=== PATIENT | male | born 1995 | race Two or more races ===

== ENCOUNTER 2022-12-14 23:22 | Inpatient (IN) | payer OTHER, SELFPAY ==
[2022-12-14 23:50] VITALS: BP 136/83; PULSE 63; RESP 16; TEMP 36.4; O2SAT 97
[2022-12-15 00:03] VITALS: BMI 22.3
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
[2022-12-15 09:00] VITALS: BP 121/80; PULSE 78; RESP 18; TEMP 36.4; O2SAT 100
[2022-12-15] MEDS: Sertraline HCL 50 MG TABLET PO (15:37)
--- NOTE | 2022-12-15 16:46 | HO.PM.IMCN ---
History of Present Illness Data of Consult Service Date: 12/15/22 Requesting physician: Santosh Harris Primary Care Provider: Unknown Physician HPI Reason for consult: medical H&P 27-year-old male with history of mild intermittent asthma admitted to Psychiatry with consult placed to hospitalist service for medical H and P. Patient has no complaints at this time and is feeling well overall. He does tell me that he smokes marijuana on a regular basis which he does not always get from a dispensary. He also uses cocaine occasionally but denies any other drug use. Reports occasional alcohol use. He does tell me he also smokes 2-3 packs of cigarettes on a daily basis and does desire to quit. Review of Systems Review of Systems: General: No fevers, malaise, unintentional weight loss HEENT: No blurred vision, diplopia. No sore throat, nasal congestion, rhinorrhea, sinus pain, ear pain Cardiovascular: No chest pain, palpitations, or leg edema Respiratory: No shortness of breath, wheezing, cough GI: No abdominal pain, nausea, vomiting, diarrhea, constipation, melena, hematochezia : No dysuria, hematuria, increased urinary frequency, decreased urinary output MSK: No myalgia, back pain Neuro: No headaches, weakness, paresthesias Skin: No rashes or lesions PMF Medical History (Updated 12/15/22 @ 22:41 by Santosh Harris) Mild intermittent asthma Social History Household Members: None Housing: Homeless Do you presently have visiting nurse or other home services: No Patient Tobacco Use Status: Current everyday Tobacco user Tobacco use type: Cigarette Cigarette Packs Per Day: 1.5 Cigarettes Per Day: 30.0 Smoked in Last 30 Days: Yes e-Cigarette/Vaping Use: Never Used Patient Interested in Nicotine Replacement: Yes Patient Given Instructions on How to Stop Smoking: Yes Date Education Initiated: 12/15/22 Second Hand Smoke Exposure: Yes Use of substances other than those prescribed or required for medical reasons: Yes Substance Use Type: Crack/Cocaine and Marijuana Substance Use Frequency: Chronic Longstanding Last Used Substance: Days (ago) Currently Displaying Signs/Symptoms of Drug Intoxication Withdrawal: No Any prior treatment program specific to substance use: No Have you been hit, kicked, punched, or otherwise hurt by someone within the past year? If so, by whom?: No Do you feel safe in your current relationship?: No Current Relationship Is there a partner from a previous relationship who is making you feel unsafe now?: No Are you made to feel afraid or neglected: No Advance Directives: No Advance Directives Information Provided: No Do you have thoughts of harming others: None Do you have a plan to hurt others: No Plan Recently lost weight without trying: No How much weight loss: Not applicable Eating poorly because of decreased appetite: No Nutrition screen score: 0 Nutrition Risks: No Nutritional Risk Poor oral hygiene: No service: No Sexual orientation: Straight/Heterosexual Meds Allergies Allergy/AdvReac Type Severity Reaction Status Date / Time banana AdvReac Intermediate Difficulty Verified 12/15/22 07:30 Swallowing apple AdvReac Difficulty Verified 12/15/22 07:30 Swallowing Active Medications: Current Medications Acetaminophen (Acetaminophen 325 Mg Tablet) 650 mg PO Q6H PRN PRN Reason: Headache/Pain Mild Scale (1-3) Al Hydroxide/Mg Hydroxide (Magnesium Hydrox/Alum Hydrox 30 Ml Oral.Susp) 30 ml PO Q6H PRN PRN Reason: Heartburn/Nausea Clonidine HCl (Clonidine Hcl 0.1 Mg Tablet) 0.1 mg PO Q4H PRN; Protocol PRN Reason: severe anxiety/agitation Magnesium Hydroxide (Milk Of Magnesia 30 Ml Oral.Susp) 30 ml PO DAILY PRN PRN Reason: Constipation Nicotine Polacrilex (Nicotine Polacrilex 2 Mg Gum) 4 mg BUCCAL Q2H PRN PRN Reason: Nicotine Cravings Sertraline HCl (Sertraline Hcl 50 Mg Tablet) 50 mg PO DAILY [facility] Last Admin: 12/15/22 15:37 Dose: 50 mg Trazodone HCl (Trazodone Hcl 50 Mg Tablet) 50 mg PO BEDTIME MRX1 PRN PRN Reason: Insomnia Physical Exam Vital Signs and Narrative: Vital Signs: Last Vital Signs Temp 97.6 F 12/15/22 09:00 Pulse 78 12/15/22 09:00 Resp 18 12/15/22 09:00 BP 121/80 12/15/22 09:00 Pulse Ox 100 12/15/22 09:00 O2 Del Method Room Air 12/15/22 09:00 BMI result Body Mass Index 22.3 Constitutional - Awake and Alert, No apparent distress Eyes - PERRLA, EOMI Cardiovascular - S1S2, RRR, No edema Respiratory - Normal lung expansion, Normal respiratory effort, No respiratory distress, CTA bilaterally Gastrointestinal - NT / ND; +BS; No rebound or guarding Extremities - no calf tenderness bilaterally, no swelling Musculoskeletal - Normal inspection, normal ROM Skin - Warm/Dry Neurological - Alert & oriented x3, CN II-XII in tact, 5/5 strength BUE and BLE Psychological - Appropriate affect Assessment and Plan (1) Routine medical exam: Status: Acute Plan 27-year-old male with history of mild intermittent asthma admitted to Psychiatry with consult placed to hospitalist service for medical H and P. #Mood disorder -plan per psychiatry #Substance use -plan per psychiatry #Mild intermittent asthma -no exacerbation -albuterol prn #Cigarette smoking -Currently smoking 2-3 packs per day -Desires to quit cold turkey. Nicorette prn -Cessation counseling provided Thank you for allowing me to participate in this consult. Signing off at this time. Please do not hesitate to call for further questions. Time Spent With Patient Time: Total time managing care of this patient today ____ minutes.
[2022-12-15 20:56] VITALS: BP 133/83; PULSE 75; RESP 16; TEMP 36.6; O2SAT 98
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
[2022-12-16 07:00] VITALS: BMI 22.7
[2022-12-16 08:32] VITALS: BP 119/80; PULSE 85; RESP 18; TEMP 36.6; O2SAT 100
[2022-12-16] MEDS: Sertraline HCL 50 MG TABLET PO (08:34)
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
[2022-12-16 22:28] VITALS: BP 131/91; PULSE 60; RESP 16; O2SAT 99
[2022-12-16] MEDS: cloNIDine HCL 0.1 MG TABLET PO (22:42)
[2022-12-17 08:30] VITALS: BP 129/75; PULSE 100; RESP 18; TEMP 36.6; O2SAT 98
[2022-12-17] MEDS: Sertraline HCL 50 MG TABLET PO (08:37)
--- NOTE | 2022-12-17 09:02 | PC.NURSE ---
Leonidas is alert, fully oriented, pleasant and cooperative with discharge process. He denies ideation, plan or intent to harm self or others. He denies current physical complaint. He verbalizes understanding of discharge plan including medications and appointments.
== END 2022-12-17 11:20 | disposition home or self-care (01) | DRG 756 ==
PROVIDERS: Admitting Provider Psychiatry & Neurology Psychiatry; Visit Provider Psychiatry & Neurology Psychiatry
DX: F41.9 Anxiety disorder, unspecified (principal); F17.210 Nicotine dependence, cigarettes, uncomplicated; F32.A Depression, unspecified; J45.20 Mild intermittent asthma, uncomplicated; F43.10 Post-traumatic stress disorder, unspecified; Z71.6 Tobacco abuse counseling; Z79.899 Other long term (current) drug therapy

== ENCOUNTER 2023-03-10 18:55 | Inpatient (IN) | payer OTHER, SELFPAY ==
[2023-03-10 19:46] VITALS: BP 117/77; PULSE 87; RESP 16; TEMP 36.6; O2SAT 97
[2023-03-10 20:07] VITALS: BMI 22.1
--- NOTE | 2023-03-10 20:32 | PC.ADMIT ---
Addendum entered by Elina Lorenzo RN 03/10/23 22:09: EKG was completed. QT/QTC 408/417 Acute Bronchitis dx at [facility] Original Note: PT is a 28 year old Tajik speaking male that arrived on this unit at 19:05 via ambulance from [facility] and was placed on 5 minute safety checks per protocol. Legal Status: conditional voluntary. PT self presented to [facility] ED seeking assistance for increased depression and suicidal ideation with a plan to jump off a bridge. PT has a history of substance use disorder and is currently homeless. Tox screen + for THC and cocaine as well as a BAL of 56. PT admits to using cocaine as often as he can get it, marijuana daily, and alcohol daily with an estimate of 10-12 nips per day for an estimated time of one month with last use prior to admission. PT is dressed in hospital attire, appears well groomed and is engaged throughout admission process. PT is currently not exhibiting any signs of withdrawal. CIWAs ordered and withdrawal protocol initiated by provider (LINDA). VS stable at this time. PT was psychiatrically admitted to this unit in November 2022 but did not continue medications for long after discharge due to they make me feel like a zombie . PT denies current SI/HI AH/VH and is currently resting in bed and appears to be in no acute distress. Admission orders obtained, safety tool and treatment plan completed. Promote safety and initiate treatment plan.
[2023-03-10] MEDS: LORazepam 0.5 MG TABLET PO (21:16)
[2023-03-11 07:55] LABS: Estimated Average Glucose 94 mg/dL; Hemoglobin A1c % 4.9 %
[2023-03-11 08:10] LABS: Cholesterol 181 mg/dL; HDL Cholesterol 52 mg/dL; LDL Cholesterol Calculated 104 mg/dl; Magnesium 2.2 mg/dL (1.6-2.6); Triglycerides 125 mg/dL
[2023-03-11 08:27] LABS: Thyroid Stimulating Hormone 0.52 uIU/mL (0.32-4.0)
[2023-03-11 08:38] LABS: Folate 10.7 ng/mL (> or = 4.0); Vitamin B12 408 pg/mL (200-900)
[2023-03-11] MEDS: LORazepam 0.5 MG TABLET PO ×2 (08:40→20:21)
[2023-03-11] MEDS: Doxycycline Monohydrate 100 MG CAPSULE PO ×2 (08:40→20:21)
[2023-03-11] MEDS: predniSONE 20 MG TABLET 40 MG PO (08:40)
[2023-03-11] MEDS: Thiamine HCL 100 MG TABLET PO (08:41)
[2023-03-11] MEDS: Folic Acid 1 MG TABLET PO (08:41)
[2023-03-11] MEDS: Multivitamin TABLET 1 TAB PO (08:41)
[2023-03-11 09:01] VITALS: BP 128/73; PULSE 86; RESP 18; TEMP 36.7; O2SAT 98
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
--- NOTE | 2023-03-11 13:35 | MHC.CLN ---
NUTRITION CONSULT FOR REPORTED RECENT 10# WEIGHT LOSS. WEIGHT HX X 3 MONTHS DOES NOT CONFIRM WEIGHT LOSS. REPORTS THAT EATING VERY WELL HERE. WOULD LIKE ENSURE TID. SUPPLEMENT PROVIDES [address] AVAILABLE BY CONSULT.
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
[2023-03-11 20:10] VITALS: BP 130/84; PULSE 66; RESP 18; TEMP 36.6; O2SAT 97
[2023-03-11] MEDS: Escitalopram Oxalate 10 MG TABLET PO (20:21)
[2023-03-12 08:44] VITALS: BP 124/79; PULSE 61; RESP 18; TEMP 36.6; O2SAT 98
[2023-03-12] MEDS: Multivitamin TABLET 1 TAB PO (08:48)
[2023-03-12] MEDS: Doxycycline Monohydrate 100 MG CAPSULE PO ×2 (08:48→22:03)
[2023-03-12] MEDS: Folic Acid 1 MG TABLET PO (08:48)
[2023-03-12] MEDS: predniSONE 20 MG TABLET 40 MG PO (08:48)
[2023-03-12] MEDS: Thiamine HCL 100 MG TABLET PO (08:48)
[2023-03-12] MEDS: LORazepam 0.5 MG TABLET PO ×2 (08:48→22:02)
--- NOTE | 2023-03-12 16:15 | HO.PSYCHPN ---
Subjective Subjective Date of Service: 03/12/23 Reason For Visit: Bipolar Disorder, Cocaine Use Disorder Interim History: pt says he's upset with himself for getting himself back here. disappointed. no other complaints or requests. per staff, CIWAs all 0 or 1. slept well. denies SI/HI/AVH. med-compliant. Mental Status Exam Mental Status Exam Narrative: Pt is alert and oriented; behavior is cooperative and calm; patient is not in distress; dressed in casual attire; mood is described as angry; eye contact appropriate; Speech is normal rate, volume and prosody and not pressured; no psychomotor agitation/retardation present; thought process is organized and goal directed; Thought content is on tx; otherwise pertinent to relevant topics and without any delusional content, paranoid ideations or grandiosity; no SI/HI expressed. There is no evidence of perceptual disturbance. Patients insight and judgment are poor. Diagnostics Vital Signs (24Hr): Vital Signs - 24 hr 03/11/23 20:10 03/12/23 08:44 Temperature 97.9 F 97.9 F Pulse Rate 66 61 Respiratory Rate 18 18 Blood Pressure 130/84 124/79 Pulse Oximetry 97 98 Oxygen Delivery Method Room Air Room Air BMI result Body Mass Index 22.1 Labs Labs: Laboratory Results - last 48 hr 03/11/23 03/11/23 03/11/23 07:31 07:31 07:31 Estimat Average Glucose 94 Hemoglobin A1c % 4.9 Magnesium 2.2 Triglycerides 125 Cholesterol 181 LDL Cholesterol, Calc 104 HDL Cholesterol 52 Vitamin B12 408 Folate 10.7 TSH 0.52 Free T4 1.00 Medications Medications Current Medications Acetaminophen (Acetaminophen 325 Mg Tablet) 650 mg PO Q6H PRN PRN Reason: Headache/Pain Mild Scale (1-3) Al Hydroxide/Mg Hydroxide (Magnesium Hydrox/Alum Hydrox 30 Ml Oral.Susp) 30 ml PO Q6H PRN PRN Reason: Heartburn/Nausea Albuterol Sulfate (Albuterol Sulfate 90 Mcg 8 Gm Inhaler) 1 puff INHALE RQ4H PRN PRN Reason: wheeze Clonidine HCl (Clonidine Hcl 0.1 Mg Tablet) 0.1 mg PO BID PRN; Protocol PRN Reason: Anxiety Doxycycline Monohydrate (Doxycycline Monohydrate 100 Mg Capsule) 100 mg PO BID [facility] Stop: 03/17/23 21:01 Last Admin: 03/12/23 08:48 Dose: 100 mg Escitalopram Oxalate (Escitalopram Oxalate 10 Mg Tablet) 10 mg PO BEDTIME [facility] Last Admin: 03/11/23 20:21 Dose: 10 mg Folic Acid (Folic Acid 1 Mg Tablet) 1 mg PO DAILY [facility] Last Admin: 03/12/23 08:48 Dose: 1 mg Hydroxyzine HCl (Hydroxyzine Hcl 25 Mg Tablet) 25 mg PO Q6H PRN PRN Reason: Anxiety Lorazepam (Lorazepam 1 Mg Tablet) 1 mg PO Q4H PRN PRN Reason: Alcohol Withdrawal Lorazepam (Lorazepam 0.5 Mg Tablet) 0.5 mg PO BID [facility] Last Admin: 03/12/23 08:48 Dose: 0.5 mg Magnesium Hydroxide (Milk Of Magnesia 30 Ml Oral.Susp) 30 ml PO DAILY PRN PRN Reason: Constipation Multivitamins/Vitamin C (Multivitamin Tablet) 1 tab PO DAILY [facility] Last Admin: 03/12/23 08:48 Dose: 1 tab Prednisone (Prednisone 20 Mg Tablet) 40 mg PO DAILY [facility] Stop: 03/16/23 09:00 Last Admin: 03/12/23 08:48 Dose: 40 mg Thiamine HCl (Thiamine Hcl 100 Mg Tablet) 100 mg PO DAILY [facility] Last Admin: 03/12/23 08:48 Dose: 100 mg Trazodone HCl (Trazodone Hcl 50 Mg Tablet) 50 mg PO BEDTIME MRX1 PRN PRN Reason: Insomnia Allergies Allergies Allergy/AdvReac Type Severity Reaction Status Date / Time banana AdvReac Intermediate Difficulty Verified 12/15/22 07:30 Swallowing apple AdvReac Difficulty Verified 12/15/22 07:30 Swallowing Assessment & Plan Assessment & Plan (1) Depression: Status: Acute Code(s): F32.A - Depression, unspecified Plan Patient is a 28 year old male with hx of MDD, PTSD and polysubstance abuse who self presented to [facility] ER d/t suicidal ideation to jump off a bridge secondary to increased depressive symptoms. Plan: CV 15 minute safety checks CIWA referral to outpatient providers ENCOURAGE SOBRIETY Educate patient on the interaction between substance abuse and its effects on mood anxiety and suicidality Multivitamin 1 tab PO daily Thiamine 100mg PO daily Folic Acid 1mg PO daily Ativan 0.5mg PO BID Prednisone 40mg PO daily (tx of acute bronchitis) Vibramycin 100mg PO BID (tx of acute bronchitis) Start: clonidine 0.1mg PO BID PRN anxiety Lexapro 10mg PO daily (tx for depression/anxiety) 03/12: continue current mgmt. pt expressing anger with himself for ending up back here again. Reason for continued inpatient stay Substantial Risk for: inability to function and rapid decompensation Time Spent With Patient Time: Total time managing care of this patient today ____ minutes.
[2023-03-12] MEDS: hydrOXYzine HCL 25 MG TABLET PO (16:16)
[2023-03-12] MEDS: Escitalopram Oxalate 10 MG TABLET PO (22:02)
[2023-03-12 22:09] VITALS: BP 118/79; PULSE 55; RESP 18; TEMP 36.7; O2SAT 100
[2023-03-12] MEDS: traZODone HCL 50 MG TABLET PO (23:18)
[2023-03-13 09:10] VITALS: BP 123/76; PULSE 77; RESP 15; TEMP 36.6; O2SAT 98
[2023-03-13] MEDS: LORazepam 0.5 MG TABLET PO ×2 (09:11→20:50)
[2023-03-13] MEDS: predniSONE 20 MG TABLET 40 MG PO (09:11)
[2023-03-13] MEDS: Multivitamin TABLET 1 TAB PO (09:11)
[2023-03-13] MEDS: Doxycycline Monohydrate 100 MG CAPSULE PO ×2 (09:12→20:51)
[2023-03-13] MEDS: Thiamine HCL 100 MG TABLET PO (09:12)
[2023-03-13] MEDS: Folic Acid 1 MG TABLET PO (09:12)
--- NOTE | 2023-03-13 16:16 | HO.PSYCHPN ---
Subjective Subjective Date of Service: 03/13/23 Reason For Visit: Bipolar Disorder, Cocaine Use Disorder Interim History: denies FERRARI, sweats, tremors, n/v/d. sleeping and eating OK. agrees to schedule trazodone 50 mg for insomnia. per staff, low CIWA scores. slept 2330 on. med-compliant. Mental Status Exam Mental Status Exam Narrative: Pt is alert and oriented; behavior is cooperative and calm; patient is not in distress; dressed in casual attire; mood is described as angry; eye contact appropriate; Speech is normal rate, volume and prosody and not pressured; no psychomotor agitation/retardation present; thought process is organized and goal directed; Thought content is on tx; otherwise pertinent to relevant topics and without any delusional content, paranoid ideations or grandiosity; no SI/HI expressed. There is no evidence of perceptual disturbance. Patients insight and judgment are poor. Diagnostics Vital Signs (24Hr): Vital Signs - 24 hr 03/12/23 22:09 03/13/23 09:10 Temperature 98.0 F 97.8 F Pulse Rate 55 77 Respiratory Rate 18 15 Blood Pressure 118/79 123/76 Pulse Oximetry 100 98 Oxygen Delivery Method Room Air Room Air BMI result Body Mass Index 22.1 Medications Medications Current Medications Acetaminophen (Acetaminophen 325 Mg Tablet) 650 mg PO Q6H PRN PRN Reason: Headache/Pain Mild Scale (1-3) Al Hydroxide/Mg Hydroxide (Magnesium Hydrox/Alum Hydrox 30 Ml Oral.Susp) 30 ml PO Q6H PRN PRN Reason: Heartburn/Nausea Albuterol Sulfate (Albuterol Sulfate 90 Mcg 8 Gm Inhaler) 1 puff INHALE RQ4H PRN PRN Reason: wheeze Clonidine HCl (Clonidine Hcl 0.1 Mg Tablet) 0.1 mg PO BID PRN; Protocol PRN Reason: Anxiety Doxycycline Monohydrate (Doxycycline Monohydrate 100 Mg Capsule) 100 mg PO BID [facility] Stop: 03/17/23 21:01 Last Admin: 03/13/23 09:12 Dose: 100 mg Escitalopram Oxalate (Escitalopram Oxalate 10 Mg Tablet) 10 mg PO BEDTIME [facility] Last Admin: 03/12/23 22:02 Dose: 10 mg Folic Acid (Folic Acid 1 Mg Tablet) 1 mg PO DAILY [facility] Last Admin: 03/13/23 09:12 Dose: 1 mg Hydroxyzine HCl (Hydroxyzine Hcl 25 Mg Tablet) 25 mg PO Q6H PRN PRN Reason: Anxiety Last Admin: 03/12/23 16:16 Dose: 25 mg Lorazepam (Lorazepam 0.5 Mg Tablet) 0.5 mg PO BID [facility] Last Admin: 03/13/23 09:11 Dose: 0.5 mg Magnesium Hydroxide (Milk Of Magnesia 30 Ml Oral.Susp) 30 ml PO DAILY PRN PRN Reason: Constipation Multivitamins/Vitamin C (Multivitamin Tablet) 1 tab PO DAILY [facility] Last Admin: 03/13/23 09:11 Dose: 1 tab Prednisone (Prednisone 20 Mg Tablet) 40 mg PO DAILY [facility] Stop: 03/16/23 09:00 Last Admin: 03/13/23 09:11 Dose: 40 mg Thiamine HCl (Thiamine Hcl 100 Mg Tablet) 100 mg PO DAILY [facility] Last Admin: 03/13/23 09:12 Dose: 100 mg Trazodone HCl (Trazodone Hcl 50 Mg Tablet) 50 mg PO BEDTIME MRX1 PRN PRN Reason: Insomnia Last Admin: 03/12/23 23:18 Dose: 50 mg Trazodone HCl (Trazodone Hcl 50 Mg Tablet) 50 mg PO BEDTIME [facility] Allergies Allergies Allergy/AdvReac Type Severity Reaction Status Date / Time banana AdvReac Intermediate Difficulty Verified 12/15/22 07:30 Swallowing apple AdvReac Difficulty Verified 12/15/22 07:30 Swallowing Assessment & Plan Assessment & Plan (1) Depression: Status: Acute Code(s): F32.A - Depression, unspecified Plan Patient is a 28 year old male with hx of MDD, PTSD and polysubstance abuse who self presented to [facility] ER d/t suicidal ideation to jump off a bridge secondary to increased depressive symptoms. Plan: CV 15 minute safety checks CIWA referral to outpatient providers ENCOURAGE SOBRIETY Educate patient on the interaction between substance abuse and its effects on mood anxiety and suicidality Multivitamin 1 tab PO daily Thiamine 100mg PO daily Folic Acid 1mg PO daily Ativan 0.5mg PO BID Prednisone 40mg PO daily (tx of acute bronchitis) Vibramycin 100mg PO BID (tx of acute bronchitis) Start: clonidine 0.1mg PO BID PRN anxiety Lexapro 10mg PO daily (tx for depression/anxiety) 03/12: continue current mgmt. pt expressing anger with himself for ending up back here again. 03/13: stable. denies withdrawal Sx, low CIWA scores. detox protocol DCed. trazodone 50 scheduled for insomnia. otherwise previous regimen continued. Reason for continued inpatient stay Substantial Risk for: inability to function and rapid decompensation Time Spent With Patient Time: Total time managing care of this patient today ____ minutes.
[2023-03-13] MEDS: Escitalopram Oxalate 10 MG TABLET PO (20:51)
[2023-03-13] MEDS: traZODone HCL 50 MG TABLET PO ×2 (20:51→23:27)
[2023-03-13 20:55] VITALS: BP 131/83; PULSE 68; RESP 18; TEMP 37; O2SAT 99
[2023-03-13] MEDS: Acetaminophen 325 MG TABLET 650 MG PO (22:32)
--- NOTE | 2023-03-14 01:45 | PC.NURSE ---
approached Pt to obtain vital signs. Pt wrapping up a phone call in his room. Pt calm and cooperative. pt denied any complaints/concerns. Vital sign stable. Pt reported feel safe on the unit. pt denied SI/HI/AH/VH. Later on, about 2129, pt after responding to another phone call around 2099, became upset, agitated, shouting out loud in front of the nursing station, that he needs to leave the hospital on Tuesday, I don't want to be here after Tuesday otherwise things are gonna go down ? if something from the phone call he received might have triggered his anger. Pt have signed a 3 day but no witness or date entered on form. Pt later seen in the milieu socializing with his peers. pt reported a 6/10 headache, pt received Tylenol 650mg po with good effect. Pt also received trazadone 50mg po for sleep. Pt went to bed at midnight.
[2023-03-14] MEDS: Thiamine HCL 100 MG TABLET PO (09:24)
[2023-03-14] MEDS: Folic Acid 1 MG TABLET PO (09:24)
[2023-03-14] MEDS: Multivitamin TABLET 1 TAB PO (09:24)
[2023-03-14] MEDS: predniSONE 20 MG TABLET 40 MG PO (09:24)
[2023-03-14] MEDS: Doxycycline Monohydrate 100 MG CAPSULE PO ×2 (09:25→20:54)
[2023-03-14] MEDS: LORazepam 0.5 MG TABLET PO (09:25)
[2023-03-14 09:26] VITALS: BP 130/84; PULSE 60; TEMP 36.6; O2SAT 100
--- NOTE | 2023-03-14 10:36 | P.PNPSI_ITS ---
Subjective Subjective Date of Service: 03/14/23 Reason For Visit: Bipolar Disorder, Cocaine Use Disorder Subjective Notes: 3 Day Interim History: Reviewed with team and Dr. Salgado. Patient reports feeling okay today. Patient stated, I'm upset with myself for having to come into the hospital. I feel like I should have been able to handle my stress. I'm happy that I asked for help . Patient reports he is benefiting from attending the groups on the unit. Patient stated he feels his mood has improved and would like to follow up with outpatient therapy. Patient stated, I don't want to drink or do coke anymore. I'm hoping that I can learn more coping skills while I'm here and when I meet with my therapist . Medication Compliance: Yes Side effects from medications: No Attending Groups: Yes Review of Systems Review of Systems depressed but no SI Constitutional: Reports as per HPI Eyes: Reports as per HPI Reports as per HPI Cardiovascular: Reports as per HPI Respiratory: Reports as per HPI Gastrointestinal: Reports as per HPI Genitourinary: Reports as per HPI Musculoskeletal: Reports as per HPI Skin/Breast: Reports as per HPI Reports as per HPI Psychiatric: Reports as per HPI Endocrine: Reports as per HPI Hematologic/Lymphatic: Reports as per HPI Allergic/Immunologic: Reports as per HPI Mental Status Exam Mental Status Exam Narrative: Pt is alert and oriented; behavior is cooperative and calm; patient is not in distress; dressed in casual attire; mood is described as okay ; eye contact appropriate; Speech is normal rate, volume and prosody and not pressured; no psychomotor agitation/retardation present; thought process is organized and goal directed; Thought content is on tx; otherwise pertinent to relevant topics and without any delusional content, paranoid ideations or grandiosity; no SI/HI expressed. There is no evidence of perceptual disturbance. Patients insight and judgment are poor but improving. Diagnostics Vital Signs (24Hr): Vital Signs - 24 hr 03/13/23 20:55 03/14/23 09:26 Temperature 98.6 F 97.8 F Pulse Rate 68 60 Respiratory Rate 18 Blood Pressure 131/83 130/84 Pulse Oximetry 99 100 Oxygen Delivery Method Room Air Room Air BMI result Body Mass Index 22.1 Medications Medications Current Medications Acetaminophen (Acetaminophen 325 Mg Tablet) 650 mg PO Q6H PRN PRN Reason: Headache/Pain Mild Scale (1-3) Last Admin: 03/13/23 22:32 Dose: 650 mg Al Hydroxide/Mg Hydroxide (Magnesium Hydrox/Alum Hydrox 30 Ml Oral.Susp) 30 ml PO Q6H PRN PRN Reason: Heartburn/Nausea Albuterol Sulfate (Albuterol Sulfate 90 Mcg 8 Gm Inhaler) 1 puff INHALE RQ4H PRN PRN Reason: wheeze Clonidine HCl (Clonidine Hcl 0.1 Mg Tablet) 0.1 mg PO BID PRN; Protocol PRN Reason: Anxiety Doxycycline Monohydrate (Doxycycline Monohydrate 100 Mg Capsule) 100 mg PO BID [facility] Stop: 03/17/23 21:01 Last Admin: 03/14/23 09:25 Dose: 100 mg Escitalopram Oxalate (Escitalopram Oxalate 10 Mg Tablet) 10 mg PO BEDTIME NASEEM Last Admin: 03/13/23 20:51 Dose: 10 mg Folic Acid (Folic Acid 1 Mg Tablet) 1 mg PO DAILY [facility] Last Admin: 03/14/23 09:24 Dose: 1 mg Hydroxyzine HCl (Hydroxyzine Hcl 25 Mg Tablet) 25 mg PO Q6H PRN PRN Reason: Anxiety Last Admin: 03/12/23 16:16 Dose: 25 mg Lorazepam (Lorazepam 0.5 Mg Tablet) 0.5 mg PO BID [facility] Last Admin: 03/14/23 09:25 Dose: 0.5 mg Magnesium Hydroxide (Milk Of Magnesia 30 Ml Oral.Susp) 30 ml PO DAILY PRN PRN Reason: Constipation Multivitamins/Vitamin C (Multivitamin Tablet) 1 tab PO DAILY [facility] Last Admin: 03/14/23 09:24 Dose: 1 tab Prednisone (Prednisone 20 Mg Tablet) 40 mg PO DAILY [facility] Stop: 03/16/23 09:00 Last Admin: 03/14/23 09:24 Dose: 40 mg Thiamine HCl (Thiamine Hcl 100 Mg Tablet) 100 mg PO DAILY [facility] Last Admin: 03/14/23 09:24 Dose: 100 mg Trazodone HCl (Trazodone Hcl 50 Mg Tablet) 50 mg PO BEDTIME MRX1 PRN PRN Reason: Insomnia Last Admin: 03/12/23 23:18 Dose: 50 mg Trazodone HCl (Trazodone Hcl 50 Mg Tablet) 50 mg PO BEDTIME NASEEM Last Admin: 03/13/23 23:27 Dose: 50 mg Allergies Allergies Allergy/AdvReac Type Severity Reaction Status Date / Time banana AdvReac Intermediate Difficulty Verified 12/15/22 07:30 Swallowing apple AdvReac Difficulty Verified 12/15/22 07:30 Swallowing Assessment & Plan Assessment & Plan (1) Depression: Status: Acute Code(s): F32.A - Depression, unspecified Plan Patient is a 28 year old male with hx of MDD, PTSD and polysubstance abuse who self presented to [facility] ER d/t suicidal ideation to jump off a bridge secondary to increased depressive symptoms. Plan: 3 day 15 minute safety checks referral to outpatient providers ENCOURAGE SOBRIETY Educate patient on the interaction between substance abuse and its effects on mood anxiety and suicidality Multivitamin 1 tab PO daily Thiamine 100mg PO daily Folic Acid 1mg PO daily Prednisone 40mg PO daily (tx of acute bronchitis) Vibramycin 100mg PO BID (tx of acute bronchitis) clonidine 0.1mg PO BID PRN anxiety Lexapro 10mg PO daily (tx for depression/anxiety) Decrease: Ativan 0.5mg PO daily 03/12: continue current mgmt. pt expressing anger with himself for ending up back here again. 03/13: stable. denies withdrawal Sx, low CIWA scores. detox protocol DCed. trazodone 50 scheduled for insomnia. otherwise previous regimen continued. 03/14: Patient reports benefits from attending groups. Would like to learn more coping skills before discharge. Pt would like to stop using cocaine and ETOH, however, does not want to attend a substance abuse program. Plans on following up with outpatient providers. Pt on 3 day, plan to discharge on Tuesday. Patient educated on: diagnosis, medication risk/benefits, substance abuse and therapeutic strategies Informed Consent: understands Reason for continued inpatient stay Substantial Risk for: med/psych decompensation Time Spent With Patient Time: Total time managing care of this patient today ____ minutes.
--- NOTE | 2023-03-14 10:43 | PC.NURSE ---
Pt is a smoker, provider is aware. Pt declined nicotine replacement at this time.
[2023-03-14 19:50] VITALS: BP 131/77; PULSE 61; RESP 18; TEMP 36.6; O2SAT 98
[2023-03-14] MEDS: traZODone HCL 50 MG TABLET PO ×2 (20:54→21:56)
[2023-03-14] MEDS: Escitalopram Oxalate 10 MG TABLET PO (20:54)
[2023-03-15 07:50] VITALS: BP 133/82; PULSE 60; TEMP 36.5; O2SAT 98
[2023-03-15] MEDS: Folic Acid 1 MG TABLET PO (09:18)
[2023-03-15] MEDS: Multivitamin TABLET 1 TAB PO (09:18)
[2023-03-15] MEDS: Thiamine HCL 100 MG TABLET PO (09:18)
[2023-03-15] MEDS: predniSONE 20 MG TABLET 40 MG PO (09:18)
[2023-03-15] MEDS: Doxycycline Monohydrate 100 MG CAPSULE PO ×2 (09:19→22:18)
[2023-03-15] MEDS: LORazepam 0.5 MG TABLET PO (09:19)
--- NOTE | 2023-03-15 10:02 | HO.PSYCHPN ---
Subjective Subjective Date of Service: 03/15/23 Reason For Visit: Bipolar Disorder, Cocaine Use Disorder Subjective Notes: 3 Day Interim History: Reviewed with team and Dr. Salgado. Patient reports feeling good today. Patient stated, I feel ready to go tomorrow. I'm staying positive. I've been going to groups, learning skills. I plan on staying with my mother after discharge and seeing my kids. I am going to focus on getting healthy again and go to the gym . Patient reports he plans on obtaining a cellphone when discharged to be able to make his own therapy appointments since his ex-girlfriend would make them for him. Medication Compliance: Yes Side effects from medications: No Attending Groups: Yes Review of Systems Review of Systems depressed but no SI Constitutional: Reports as per HPI Eyes: Reports as per HPI Reports as per HPI Cardiovascular: Reports as per HPI Respiratory: Reports as per HPI Gastrointestinal: Reports as per HPI Genitourinary: Reports as per HPI Musculoskeletal: Reports as per HPI Skin/Breast: Reports as per HPI Reports as per HPI Psychiatric: Reports as per HPI Endocrine: Reports as per HPI Hematologic/Lymphatic: Reports as per HPI Allergic/Immunologic: Reports as per HPI Mental Status Exam Mental Status Exam Narrative: Pt is alert and oriented; behavior is cooperative and calm; patient is not in distress; dressed in casual attire; mood is described as okay ; eye contact appropriate; Speech is normal rate, volume and prosody and not pressured; no psychomotor agitation/retardation present; thought process is organized and goal directed; Thought content is on discharge; otherwise pertinent to relevant topics and without any delusional content, paranoid ideations or grandiosity; no SI/HI expressed. There is no evidence of perceptual disturbance. Patients insight and judgment are fair. Diagnostics Vital Signs (24Hr): Vital Signs - 24 hr 03/14/23 19:50 03/15/23 07:50 Temperature 97.8 F 97.7 F Pulse Rate 61 60 Respiratory Rate 18 Blood Pressure 131/77 133/82 Pulse Oximetry 98 98 Oxygen Delivery Method Room Air Room Air BMI result Body Mass Index 22.1 Medications Medications Current Medications Acetaminophen (Acetaminophen 325 Mg Tablet) 650 mg PO Q6H PRN PRN Reason: Headache/Pain Mild Scale (1-3) Last Admin: 03/13/23 22:32 Dose: 650 mg Al Hydroxide/Mg Hydroxide (Magnesium Hydrox/Alum Hydrox 30 Ml Oral.Susp) 30 ml PO Q6H PRN PRN Reason: Heartburn/Nausea Albuterol Sulfate (Albuterol Sulfate 90 Mcg 8 Gm Inhaler) 1 puff INHALE RQ4H PRN PRN Reason: wheeze Clonidine HCl (Clonidine Hcl 0.1 Mg Tablet) 0.1 mg PO BID PRN; Protocol PRN Reason: Anxiety Doxycycline Monohydrate (Doxycycline Monohydrate 100 Mg Capsule) 100 mg PO BID [facility] Stop: 03/17/23 21:01 Last Admin: 03/15/23 09:19 Dose: 100 mg Escitalopram Oxalate (Escitalopram Oxalate 10 Mg Tablet) 10 mg PO BEDTIME [facility] Last Admin: 03/14/23 20:54 Dose: 10 mg Folic Acid (Folic Acid 1 Mg Tablet) 1 mg PO DAILY [facility] Last Admin: 03/15/23 09:18 Dose: 1 mg Hydroxyzine HCl (Hydroxyzine Hcl 25 Mg Tablet) 25 mg PO Q6H PRN PRN Reason: Anxiety Last Admin: 03/12/23 16:16 Dose: 25 mg Lorazepam (Lorazepam 0.5 Mg Tablet) 0.5 mg PO DAILY [facility] Last Admin: 03/15/23 09:19 Dose: 0.5 mg Magnesium Hydroxide (Milk Of Magnesia 30 Ml Oral.Susp) 30 ml PO DAILY PRN PRN Reason: Constipation Multivitamins/Vitamin C (Multivitamin Tablet) 1 tab PO DAILY [facility] Last Admin: 03/15/23 09:18 Dose: 1 tab Prednisone (Prednisone 20 Mg Tablet) 40 mg PO DAILY [facility] Stop: 03/16/23 09:00 Last Admin: 03/15/23 09:18 Dose: 40 mg Thiamine HCl (Thiamine Hcl 100 Mg Tablet) 100 mg PO DAILY [facility] Last Admin: 03/15/23 09:18 Dose: 100 mg Trazodone HCl (Trazodone Hcl 50 Mg Tablet) 50 mg PO BEDTIME MRX1 PRN PRN Reason: Insomnia Last Admin: 03/14/23 21:56 Dose: 50 mg Trazodone HCl (Trazodone Hcl 50 Mg Tablet) 50 mg PO BEDTIME [facility] Last Admin: 03/14/23 20:54 Dose: 50 mg Allergies Allergies Allergy/AdvReac Type Severity Reaction Status Date / Time banana AdvReac Intermediate Difficulty Verified 12/15/22 07:30 Swallowing apple AdvReac Difficulty Verified 12/15/22 07:30 Swallowing Assessment & Plan Assessment & Plan (1) Depression: Status: Acute Code(s): F32.A - Depression, unspecified Plan Patient is a 28 year old male with hx of MDD, PTSD and polysubstance abuse who self presented to [facility] ER d/t suicidal ideation to jump off a bridge secondary to increased depressive symptoms. Plan: 3 day 15 minute safety checks referral to outpatient providers ENCOURAGE SOBRIETY Educate patient on the interaction between substance abuse and its effects on mood anxiety and suicidality Multivitamin 1 tab PO daily Thiamine 100mg PO daily Folic Acid 1mg PO daily Prednisone 40mg PO daily (tx of acute bronchitis) Vibramycin 100mg PO BID (tx of acute bronchitis) clonidine 0.1mg PO BID PRN anxiety Lexapro 10mg PO daily (tx for depression/anxiety) DC: Ativan 03/12: continue current mgmt. pt expressing anger with himself for ending up back here again. 03/13: stable. denies withdrawal Sx, low CIWA scores. detox protocol DCed. trazodone 50 scheduled for insomnia. otherwise previous regimen continued. 03/14: Patient reports benefits from attending groups. Would like to learn more coping skills before discharge. Pt would like to stop using cocaine and ETOH, however, does not want to attend a substance abuse program. Plans on following up with outpatient providers. Pt on 3 day, plan to discharge on Tuesday. 03/15: Plans on living with his mother upon discharge. Pt trying to stay positive. Attending groups.Plans focusing on getting healthy and exercising and not using substances. Patient reports he plans on obtaining a cellphone when discharged to be able to make his own therapy appointments since his ex-girlfriend would make them for him. Will discharge tomorrow on 3 day. Patient educated on: diagnosis, medication risk/benefits, substance abuse and therapeutic strategies Informed Consent: understands Reason for continued inpatient stay Substantial Risk for: stable for discharge Time Spent With Patient Time: Total time managing care of this patient today ____ minutes.
[2023-03-15] MEDS: traZODone HCL 50 MG TABLET PO (22:18)
[2023-03-15] MEDS: Escitalopram Oxalate 10 MG TABLET PO (22:18)
[2023-03-15 22:19] VITALS: BP 129/79; PULSE 78; TEMP 37.1; O2SAT 98
[2023-03-16 08:26] VITALS: BP 145/89; PULSE 69; RESP 18; TEMP 36.7; O2SAT 100
[2023-03-16] MEDS: predniSONE 20 MG TABLET 40 MG PO (08:40)
[2023-03-16] MEDS: Folic Acid 1 MG TABLET PO (08:40)
[2023-03-16] MEDS: Thiamine HCL 100 MG TABLET PO (08:40)
[2023-03-16] MEDS: Doxycycline Monohydrate 100 MG CAPSULE PO (08:40)
[2023-03-16] MEDS: Multivitamin TABLET 1 TAB PO (08:40)
--- NOTE | 2023-03-16 10:32 | PM.PSYDC ---
DS: Providers Provider Date of Service: 03/16/23 Date of admission: 03/10/23 18:55 Date of discharge: 03/16/23 Primary care physician: None Physician Admitting clinician: Luly Flores Attending physician on admission: Miguel Salgado Consults: 03/10/23 16:54 Consult to Hospitalist Routine Comment: Consulting Provider: Hospitalist Reason For Exam: Transfer from [facility] Attending physician on discharge: Miguel Salgado Discharging clinician: Luly Flores DS: Diagnosis Discharge Diagnosis (1) Depression: Status: Acute DS: Medications Discharge Medications Home Medications: Previous Rx's Medication Instructions Recorded doxycycline monohydrate 100 mg 100 mg PO BID 2 days #3 caps 03/15/23 capsule escitalopram oxalate 10 mg tablet 10 mg PO BEDTIME 30 days #30 tabs 03/15/23 trazodone 50 mg tablet 50 mg PO BEDTIME 30 days #30 tabs 03/15/23 Mental Status Exam Mental Status Exam Narrative: Pt is alert and oriented; behavior is cooperative and calm; patient is not in distress; dressed in casual attire; mood is described as good ; eye contact appropriate; Speech is normal rate, volume and prosody and not pressured; no psychomotor agitation/retardation present; thought process is organized and goal directed; Thought content is on discharge; otherwise pertinent to relevant topics and without any delusional content, paranoid ideations or grandiosity; no SI/HI expressed. There is no evidence of perceptual disturbance. Patients insight and judgment are fair. Data Data Completed and Pending Completed studies during hospitalization [Text1]: 03/11/23 03/11/23 03/11/23 07:31 07:31 07:31 Estimat Average Glucose 94 Hemoglobin A1c % 4.9 Magnesium 2.2 Triglycerides 125 Cholesterol 181 LDL Cholesterol, Calc 104 HDL Cholesterol 52 Vitamin B12 408 Folate 10.7 TSH 0.52 Free T4 1.00 DS: Summary Hospital Course Hospital Course: Patient is a 28 year old male with hx of MDD, PTSD and polysubstance abuse who self presented to [facility] ER d/t suicidal ideation to jump off a bridge secondary to increased depressive symptoms. UTOX positive for cocaine and marijuana. ETOH level was 56mg/dl on 03/[address] [facility] ER. Patient does not currently take any medications and does not have providers. He reports increase in drinking alcohol d/t increased depression; states he drinks a sleeve of nips a day . During admission assessment, patient presents as calm and cooperative. Patient stated, I have depression and anxiety. I went to the hospital because my head wasn't right. I was thinking about hurting myself because of being in the streets, baby mama drama and people running their mouths . Patient reports he would like to placed on a medicine that would help with his depression and referrals for a therapist and prescriber. Patient states he has not taken any psychiatric medications in 2 months d/t feeling like a zombie when I took them . Patient reports he sleeps well at night. Patient was diagnosed with acute bronchitis when at [facility]. He was started on Prednisone and Vibramycin for treatment. Patient was placed on CIWA. Started on Lexapro 10mg PO daily for depression/anxiety treatment. Pt denied withdrawal symptoms and was scoring low on CIWA. Detox protocol D/C'd. Patient reports benefits from attending groups. Would like to learn more coping skills before discharge. Pt would like to stop using cocaine and ETOH, however, does not want to attend a substance abuse program. Plans on following up with outpatient providers. Pt on 3 day, plan to discharge on Tuesday. Pt plans on living with his mother upon discharge. Pt trying to stay positive. Attending groups.Plans focusing on getting healthy and exercising and not using substances. Patient reports he plans on obtaining a cellphone when discharged to be able to make his own therapy appointments since his ex-girlfriend would make them for him. Time spent discussing smoking cessation with patient: 3 to 10 minutes Status at Discharge Cognitive/behavioral status at discharge: Patient was interviewed prior to discharge and found to be fully oriented and without any SI or HI. Patient has insight and demonstrates good judgment in terms of wanting to pursue treatment. Patient is not in imminent risk of harm to self or others and has a safety plan that includes presenting to the closest ER or calling 911 if feeling unsafe. Patient has been observed closely by nursing and unit staff throughout admission; patient has not engaged in any behaviors that suggest dangerousness to self or others and has demonstrated appropriate behaviors and impulse control. Functional status at discharge: independent ambulation Overall status at discharge: patient is back to baseline Time Spent with Patient Time attestation: Total time managing care of this patient today ____ minutes. Time spent: Less than 30 minutes Discharge Plan Discharge Anticipated Discharge Date/Time: 03/16/23 11:00 Patient Disposition: Home, Self-Care Discharge Diagnosis: MDD, PTSD, Polysubstance abuse Referrals: [facility] [Physician] - 1 Week Discharge Medications: New trazodone 50 mg Tablet 50 mg PO BEDTIME 30 Days Qty: 30 0RF escitalopram oxalate 10 mg Tablet 10 mg PO BEDTIME 30 Days Qty: 30 0RF doxycycline monohydrate 100 mg Capsule 100 mg PO BID 2 Days Qty: 3 0RF Discontinued nicotine (polacrilex) 2 mg Gum 4 mg buccal Q2H PRN (Reason: Nicotine Cravings) 30 Days Qty: 180 0RF clonidine HCl 0.1 mg tablet 0.1 mg PO BID PRN (Reason: Anxiety) Protocol: Hold for SBP< HOLD for SBP < : 90 sertraline 50 mg tablet 100 mg PO DAILY Discharge Orders: Discharge Order (Routine); Ordered 03/15/23 Ordered By: Luly Flores Diet: Regular diet Activity on Discharge: As tolerated Stand Alone Forms: Patient Portal Discharge page, Community Support Care Plan Goals: Maintain mood and safe behaviors Take medications as prescribed Continue to pursue sobriety Practice coping skills Continue with outpatient providers and reach out to them as needed Health Concerns: Mood stability and behaviors Sobriety Plan of Treatment: Follow up with your PCP, psychiatric provider and other outpatient providers regarding above concerns Take medications as prescribed Assessment: Patient was interviewed prior to discharge and found to be fully oriented and without any SI or HI. Patient has insight and demonstrates good judgment in terms of wanting to pursue treatment. Patient is not in imminent risk of harm to self or others and has a safety plan that includes presenting to the closest ER or calling 911 if feeling unsafe. Patient has been observed closely by nursing and unit staff throughout admission; patient has not engaged in any behaviors that suggest dangerousness to self or others and has demonstrated appropriate behaviors and impulse control Discharge Date/Time: 03/16/23 10:35
== END 2023-03-16 10:35 | disposition home or self-care (01) | DRG 751 ==
PROVIDERS: Clinical Nurse Specialist Psychiatric/Mental Health, Adult; Admitting Provider Psychiatry & Neurology Psychiatry; Responsible Provider Registered Nurse; Visit Provider Psychiatry & Neurology Psychiatry
DX: F33.9 Major depressive disorder, recurrent, unspecified (principal); F17.210 Nicotine dependence, cigarettes, uncomplicated; J45.20 Mild intermittent asthma, uncomplicated; Z71.6 Tobacco abuse counseling; F19.10 Other psychoactive substance abuse, uncomplicated; F43.10 Post-traumatic stress disorder, unspecified; J20.9 Acute bronchitis, unspecified; Z59.02 Unsheltered homelessness; Z79.899 Other long term (current) drug therapy
CPT/HCPCS: 36415; 80061; 82607; 82746; 83036; 83735; 84439; 84443